=== PATIENT | female | born 1960 | race Two or more races ===

== ENCOUNTER → 2016-11-21 | Outpatient (CLI) | payer BC ==
[~2016-11-21] MED LIST: ATIVAN 1 MG1 MG PO; AUGMENTIN 875-1 EACH PO; CIPRO500 MG PO; COZAAR25 MG PO; ERY-TAB250 MG PO; GLUCOPHAGE1000 MG PO; GLUCOVANCE 5-51 EACH PO; LEVEMIR100 UNIT/1 SUB-Q; METOCLOPRAMIDE H5 MG PO; MICRONASE5 MG PO; MIRALAX17 GM PO; PROTONIX40 MG PO; REGLAN10 MG PO; ZANTAC (NON-FO150 MG PO; ZOFRAN4 MG PO
== END | disposition disaster alternative care site (69) ==
LOC: GDIC 14:09
DX: E11.65 Type 2 diabetes mellitus with hyperglycemia (principal)
CPT/HCPCS: G0108

== ENCOUNTER 2017-03-14 15:53 | Emergency (ER) | payer BC, SELFPAY ==
--- NOTE | ~2017-03-14 | ER ---
PATIENT'S NAME: GUSTAVO FITZGERALD [facility] AGE: 56 Y [address] ROOM: [place] [address] LOCATION: ED ADMIT DATE: 03/14/2017 ER/Outpatient Report DISCHARGE DATE: 03/14/2017 FAMILY PHYSICIAN: PHYSICIAN, NO ATTENDING PHYSICIAN: Mg Jett Time of Arrival: 1553 hours. Time of Evaluation: 1556 hours. CHIEF COMPLAINT: Vomiting. HISTORY OF PRESENT ILLNESS: This is a 56-year-old zeo-Zxhjxen-yeykpcll female, who presents to the ER, who has not been feeling well since last night. The patient's interpretation was done through the [employer]. The patient states that she began throwing up last night, and she has had approximately 4 to 5 diarrheal bowel movements as well. She does not believe she has been running any fevers. She has had no troubles with constipation. She has not noticed any blood in her stool or vomit in her urine. She states that she is feeling a little bit weak, so she went to the clinic in [place] today. She did get blood work drawn there. She did receive a shot for her nausea and was sent home with a prescription for nausea medication. She states that she was unable to fill the prescription because the pharmacy told her that they would not have that ready until tomorrow. She states that she does have diabetes. Her blood sugar this morning when she checked, it was 125. She states no one else at home is ill at this time. The patient denies any chest pain. No abdominal pain. No shortness of breath. ALLERGIES: NO KNOWN ALLERGIES. MEDICATIONS: Please see medication list in nurse's notes. PAST MEDICAL HISTORY: Insulin-dependent diabetic. SOCIAL HISTORY: Denies smoking, drug, or alcohol use. REVIEW OF SYSTEMS: All systems were reviewed and were negative with the exception of those discussed in the HPI. [facility] AGE: 56 Y [address] ROOM: [place] [address] LOCATION: ED ADMIT DATE: 03/14/2017 ER/Outpatient Report DISCHARGE DATE: 03/14/2017 FAMILY PHYSICIAN: PHYSICIAN, NO ATTENDING PHYSICIAN: Mg Jett PHYSICAL EXAMINATION: VITAL SIGNS: Height 5 feet 2 inches stated, weight 71 kg taken, blood pressure is 183/83, pulse 90, respirations 16, temperature 99 degrees tympanically, saturations 95% on room air. Henny Coma Score is 15. GENERAL: Alert, calm female, in mild distress due to her dry heaving. HEENT: Head: Normocephalic. Eyes: Pupils are equal and reactive to light. She does display moist mucous membranes. LUNGS: Clear to auscultation bilaterally. HEART: Regular rate and rhythm. ABDOMEN: Soft, it is nontender. She has hypoactive bowel sounds. SKIN: Warm, dry, and intact. LABORATORY DATA AND X-RAYS: CBC: White count is 11.9, hemoglobin is 12.3, platelets 343, and ANC is 9.9. CMS: Sodium is 138, potassium 3.7, glucose is 216, anion gap is 10.7, serum acetone is negative. Venous ABG: The pH is 7.45. Urinalysis clean catch, leukocytes 100, nitrites negative. UA micro, white blood cells 10-20, epithelial 0-2, bacteria many. We did send this off for culture. Labs from [place] were also reviewed. IMPRESSION: 1. Gastroenteritis. 2. Urinary tract infection. ASSESSMENT AND PLAN: We did start an IV here in the emergency room. We did give her a liter of IV fluids and a total of 8 mg of Zofran. The patient states she is still feeling nauseated, so we did give her Phenergan 50 mg IM as well. We did give her Rocephin 1 g IV for her urinary tract infection while she was resting. I did discuss the patient's care with Dr. Barrera. We will dismiss her to home. She needs to do small amounts of fluids frequently and monitor her symptoms. I will send her home with prescriptions for Zofran and Bactrim to use as directed. She needs to monitor her blood sugars closely, and I would like her to follow up with her primary care physician tomorrow morning. The patient and the patient's family understand and agree with care. SHANNON ADAMS PA-C FOR DO SEA QUIÑONES/modl /[id number] d: t: 03/17/17 1218, OUTPATIENT REPORT
[~2017-03-14 15:53] MED LIST changes: -AUGMENTIN 875-1 EACH PO; -CIPRO500 MG PO; -COZAAR25 MG PO; -MIRALAX17 GM PO
[2017-03-14 16:28] LABS: BICARBONATE 29.9 mmol/L (18.0-23.0); PCO2 43 mmHg (35-45); PO2 68 mmHg (80-90)
[2017-03-14 16:29] LABS: BASOPHIL % 0.2 %; HEMATOCRIT 36.3 % (33.0-46.0); HEMOGLOBIN 12.3 g/dL (10.0-15.0); IMMATURE GRANULOCYTE % 0.3 %; LYMPHOCYTE # 1.6 K/uL (0.8-4.0); LYMPHOCYTE % 13.8 %; MCH 31.1 pg (27.0-34.0); MCHC 33.9 gm/dL (32.0-36.5); MCV 91.9 fl (83.0-98.0); MONOCYTE # 0.3 K/uL (0.0-1.0); MONOCYTE % 2.3 %; MPV 11.4 fl (9.4-12.4); NEUTROPHIL # (ANC) 9.9 K/uL (1.8-7.8); NEUTROPHIL % 83.4 %; NRBC % 0 /100WBC (0-0.00); PLATELET COUNT 343 K/uL (150-450); RBC 3.95 M/uL (3.50-5.50); RDW-CV 12.3 % (11.9-14.6); WBC 11.9 K/uL (4.0-11.0)
[2017-03-14 16:52] LABS: ALBUMIN 3.6 gm/dL (3.5-5.0); ALK PHOS 75 IU/L (33-138); ALT 17 IU/L (12-78); ANION GAP 10.7 (10.0-19.0); AST 15 IU/L (10-40); BLOOD UREA NITROGEN 17 mg/dL (6-24); CALCIUM 8.8 mg/dL (8.5-10.5); CHLORIDE 104 mMol/L (96-110); CO2 27 mMol/L (22-32); CREATININE 0.6 mg/dL (0.5-1.1); ESTIMATED GFR (MDRD EQUATION) > 60; POTASSIUM 3.7 mMol/L (3.7-5.1); SODIUM 138 mMol/L (135-145); TOTAL BILIRUBIN 0.4 mg/dL (0.0-1.5); TOTAL PROTEIN 8.4 g/dL (6.0-8.4)
[2017-03-14 17:18] LABS: BILIRUBIN URINE NEGATIVE (NEGATIVE); BLOOD URINE 10 /UL (NEGATIVE); COLOR URINE YELLOW (YELLOW); GLUCOSE URINE 100 mg/dL (NEGATIVE); KETONE URINE 15 mg/dL (NEGATIVE); LEUKOCYTES URINE 100 /UL (NEGATIVE); NITRITE URINE NEGATIVE (NEGATIVE); PROTEIN URINE 30 mg/dL (NEGATIVE); TURBIDITY URINE 2+ (CLEAR); UROBILINOGEN URINE NORMAL (NORMAL)
[2017-03-14 17:28] LABS: BACTERIA URINE MANY (NEGATIVE); EPITHELIAL URINE 0-2 #/HPF (NEGATIVE); RBC URINE 0-2 #/HPF (NEGATIVE)
== END 2017-03-14 19:20 | disposition disaster alternative care site (69) ==
LOC: GMED 15:53
PROVIDERS: Physician Assistant Medical
DX: K52.9 Noninfective gastroenteritis and colitis, unspecified (principal); N39.0 Urinary tract infection, site not specified; E11.9 Type 2 diabetes mellitus without complications; Z79.4 Long term (current) use of insulin; Z79.899 Other long term (current) drug therapy
CPT/HCPCS: J0696; J2405; J2550; J7030

== ENCOUNTER 2017-03-18 14:57 | Emergency (ER) | payer BC, SELFPAY ==
--- NOTE | ~2017-03-18 | ER ---
PATIENT'S NAME: GUSTAVO FITZGERALD [facility] AGE: 56 Y [address] ROOM: [place] [id number] LOCATION: ED ADMIT DATE: 03/18/2017 ER/Outpatient Report DISCHARGE DATE: FAMILY PHYSICIAN: Physician, Unknown ATTENDING PHYSICIAN: Mg Jett Time of Arrival: 1457 hours. Time of Evaluation: 1509 hours. CHIEF COMPLAINT: Nausea. HISTORY OF PRESENT ILLNESS: The patient is a 56-year-old female, who presents to the emergency department today with a chief complaint of nausea. She reports that she was throwing up yesterday. She was seen in [place], was given some nausea medicine and felt better. She has not had any nausea since. She reports she just feels like her belly is having gas, and she feels nauseous. She has not had any vomiting. The patient does have a history of gastroparesis in the past. Denies any fevers or chills. No abdominal pain. No urinary frequency, urgency, or painful urination. No blood in her stool. No dark tarry stools. The patient does report she has a history of similar episodes in the past. She was recently seen in our facility and was diagnosed with the UTI and sent home with Bactrim. The patient apparently reports that she stopped taking the Bactrim because one of her other doctors told her to. PAST MEDICAL HISTORY: Insulin-dependent diabetes, gastroparesis. PAST SURGICAL HISTORY: Ventral hernia repair. SOCIAL HISTORY: Denies any tobacco, alcohol, or illicit drug use. ALLERGIES: NO KNOWN DRUG ALLERGIES. MEDICATIONS: Please see list. PRIMARY CARE DOCTOR: Tamera Long PA-C in [place]. REVIEW OF SYSTEMS: PATIENT'S NAME: GUSTAVO FITZGERALD [facility] AGE: 56 Y [address] ROOM: [place] [address] LOCATION: ED ADMIT DATE: 03/18/2017 ER/Outpatient Report DISCHARGE DATE: FAMILY PHYSICIAN: Physician, Unknown ATTENDING PHYSICIAN: Mg Jett All systems are reviewed by myself and are negative with the exception of those discussed in the HPI and past medical history. PHYSICAL EXAMINATION: VITAL SIGNS: Weight 70.4 kg, blood pressure 116/69, pulse 90, respiratory rate 18, temperature 98.9, oxygen saturation 96% on room air. GENERAL: The patient is a 56-year-old female, who appears stated age, in no acute distress at this time. HEENT: HEAD: Normocephalic, atraumatic. Pupils are equal, round, and reactive to light and accommodation. Extraocular motions are intact. Nares are patent bilaterally. TMs are clear. Oropharynx is clear. Mucous membranes moist. NECK: Supple. There is no nuchal rigidity. CARDIOVASCULAR: Regular rate and rhythm. No murmurs, rubs, or gallops. LUNGS: Clear to auscultation bilaterally. No wheezes, rales, or rhonchi. ABDOMEN: Soft, nontender, and nondistended. No rebound, rigidity, or guarding. MUSCULOSKELETAL: The patient moves all 4 extremities, 5/5 muscle strength. SKIN: Warm and dry. There are no rashes or lesions noted. LABORATORY DATA AND X-RAYS: CBC: White blood cell count 12.4. Lactate is normal. Fingerstick blood sugar is 166. CMP is unremarkable except for potassium 3.6. LFTs are normal. Procalcitonin is normal. Urinalysis shows 500 leukocyte esterase, negative nitrites, 30 protein, 50 ketones, 50-100 wbc's, few bacteria, otherwise unremarkable. IMPRESSION: 1. Acute urinary tract infection, suspect bladder. 2. Nausea. 3. Initial visit. EMERGENCY DEPARTMENT COURSE: The patient was back to the examination room. Seen and evaluated by myself. IV is established. Laboratory analysis and imaging are obtained as described above. The patient was given a liter of normal saline IV. She was given 10 mg of Reglan IV, as well as 25 mg of Benadryl IV. This has resulted in improvement in the patient's symptoms. The patient's was communicated with via [employer]. I have discussed the results with her. Her questions are answered. Her abdominal exam is repeated. She continues to have a nonsurgical abdominal exam at this time. I do feel she is safe for outpatient evaluation. I have asked she follows up with Gastroenterology for further evaluation, consideration for repeat endoscopy. I have also asked she follows up with her primary care doctor in 2 to 3 days for re-evaluation. The patient is agreeable without further questions. PATIENT'S NAME: [facility]EN [facility] AGE: 56 Y [address] ROOM: [place], [place] [address] LOCATION: [facility] ADMIT DATE: 03/18/2017 ER/Outpatient Report DISCHARGE DATE: FAMILY PHYSICIAN: Physician, Unknown ATTENDING PHYSICIAN: Mg Jett DISPOSITION: The patient discharged home in good condition. DO KATARINA QUIÑONES/mercedl /[id number] d: 03/18/174 t: 03/19/17 1608, OUTPATIENT REPORT
[2017-03-18 15:48] LABS: BILIRUBIN URINE NEGATIVE (NEGATIVE); BLOOD URINE 10 /UL (NEGATIVE); COLOR URINE YELLOW (YELLOW); GLUCOSE URINE NEGATIVE (NEGATIVE); KETONE URINE 50 mg/dL (NEGATIVE); LEUKOCYTES URINE 500 /UL (NEGATIVE); NITRITE URINE NEGATIVE (NEGATIVE); PROTEIN URINE 30 mg/dL (NEGATIVE); TURBIDITY URINE CLEAR (CLEAR); UROBILINOGEN URINE NORMAL (NORMAL)
[2017-03-18 15:59] LABS: RBC URINE 0-2 #/HPF (NEGATIVE); WBC URINE 50-100 #/HPF (NEGATIVE)
[2017-03-18 16:00] LABS: BASOPHIL % 0.2 %; EOSINOPHIL % 0.3 %; HEMATOCRIT 37.5 % (33.0-46.0); HEMOGLOBIN 12.9 g/dL (10.0-15.0); IMMATURE GRANULOCYTE # 0.1 K/uL (0.0-0.3); IMMATURE GRANULOCYTE % 0.5 %; LYMPHOCYTE # 3.2 K/uL (0.8-4.0); LYMPHOCYTE % 26.2 %; MCH 31.1 pg (27.0-34.0); MCHC 34.4 gm/dL (32.0-36.5); MCV 90.4 fl (83.0-98.0); MONOCYTE # 0.7 K/uL (0.0-1.0); MONOCYTE % 5.3 %; MPV 10.9 fl (9.4-12.4); NEUTROPHIL # (ANC) 8.4 K/uL (1.8-7.8); NEUTROPHIL % 67.5 %; NRBC % 0 /100WBC (0-0.00); PLATELET COUNT 368 K/uL (150-450); RBC 4.15 M/uL (3.50-5.50); RDW-CV 12.2 % (11.9-14.6); WBC 12.4 K/uL (4.0-11.0)
[2017-03-18 16:11] LABS: BACTERIA URINE FEW (NEGATIVE)
[2017-03-18 16:18] LABS: ALBUMIN 3.3 gm/dL (3.5-5.0); ALK PHOS 70 IU/L (33-138); ALT 15 IU/L (12-78); ANION GAP 12.6 (10.0-19.0); AST 11 IU/L (10-40); BLOOD UREA NITROGEN 19 mg/dL (6-24); CALCIUM 8.4 mg/dL (8.5-10.5); CHLORIDE 104 mMol/L (96-110); CO2 25 mMol/L (22-32); CREATININE 0.7 mg/dL (0.5-1.1); ESTIMATED GFR (MDRD EQUATION) > 60; POTASSIUM 3.6 mMol/L (3.7-5.1); SODIUM 138 mMol/L (135-145)
[2017-03-18 16:19] LABS: TOTAL BILIRUBIN 0.3 mg/dL (0.0-1.5)
== END 2017-03-18 17:07 | disposition disaster alternative care site (69) ==
LOC: GMED 14:57
PROVIDERS: Emergency Medicine
DX: N39.0 Urinary tract infection, site not specified (principal); K31.84 Gastroparesis; Z79.84 Long term (current) use of oral hypoglycemic drugs; Z79.899 Other long term (current) drug therapy; Z98.890 Other specified postprocedural states; E11.9 Type 2 diabetes mellitus without complications
CPT/HCPCS: J1200; J2765; J7030

== ENCOUNTER 2017-04-18 20:18 | Emergency (ER) | payer BC, OTHER ==
--- NOTE | ~2017-04-18 | ER ---
PATIENT'S NAME: GUSTAVO FITZGERALD [facility] AGE: 57 Y [address] ROOM: [place] [address] LOCATION: ED ADMIT DATE: 04/18/2017 ER/Outpatient Report DISCHARGE DATE: FAMILY PHYSICIAN: Tamera Long PA-C ATTENDING PHYSICIAN: Mg Jett Time of Arrival: 2019 hours. Time of Evaluation: 2020 hours. CHIEF COMPLAINT: Vomiting. 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 She did see her primary provider today in [place]. They sent her to [place] for IV fluids and Zofran. She reports that they gave her 2 L of fluid and Zofran, and she has continued to have vomiting. The vomiting had started last night. She has not had fever or chills. Has not had any frequency of urination or pain. Her last bowel movement was on Sunday. Has not noticed any blood in her vomitus. Has just some generalized fullness of her belly. No specific pain. ALLERGIES: NO KNOWN ALLERGIES. CURRENT MEDICATIONS: On her chart and reviewed by me. PAST MEDICAL HISTORY: Diabetes, elevated cholesterol, hypertension, and gastroparesis. PAST SURGICAL HISTORY: Hernia repair. SOCIAL HISTORY: Denies use of tobacco, drugs, or alcohol. PRIMARY CARE PROVIDER: RUTH Cooper in [place] is her primary provider. REVIEW OF SYSTEMS: Negative other than those mentioned in the HPI. PHYSICAL EXAMINATION: VITAL SIGNS: She weighs 72.1 kg, blood pressure initially was 203/111, pulse PATIENT'S NAME: GUSTAVO FITZGERALD [facility] AGE: 57 Y [address] ROOM: [place] [address] LOCATION: ED ADMIT DATE: 04/18/2017 ER/Outpatient Report DISCHARGE DATE: FAMILY PHYSICIAN: Tamera Long PA-C ATTENDING PHYSICIAN: Mg Jett of 112, respirations 20, temperature of 98.2, O2 saturation was 98% on room air. GENERAL: She is awake, alert, and oriented x4. SKIN: [place], warm, and dry. RESPIRATIONS: Even and nonlabored. Lung sounds are clear throughout. HEART: Regular rate and rhythm. ABDOMEN: Soft, nondistended. Bowel sounds are present. LABORATORY DATA AND X-RAYS: Lab work was done. CBC shows a white count of 16.8, hemoglobin is 13.5 with hematocrit of 39.9. Chem panel: Sodium is 136, potassium is 3.4, chlorides are 101. Her BUN is 9 with a creatinine 0.6, her glucose is 222. Lactate was 2.2. Procalcitonin was normal. Clean-catch UA was obtained. It does have 10- 20 white blood cells and many bacteria. We will culture her urine. EMERGENCY ROOM COURSE: Saline lock was initiated. Fluids of normal saline were started at a wide- open rate. She was given Benadryl 25 mg IV and Compazine 10 mg IV. With the fluids and medications, she was feeling better. She did not have any vomiting here in the ER. She was able to rest. Her vital signs remained stable. Blood pressure came down to 174/84. IMPRESSION: 1. Retractable vomiting. 2. History of gastroparesis. 3. Urinary tract infection. PLAN: Home. Rest. Fluids. Monitor blood sugar. Continue current medications. Prescription was written for Cipro. She is to follow up with her primary provider in the next 1 to 2 days if symptoms persist or worsen. KAMRAN GARCIA APRN FOR DO EMELI QUIÑONES/georgette /[id number] d: 04/19/17 0109 t: 04/26/17 1243, OUTPATIENT REPORT
[2017-04-18 20:50] LABS: BASOPHIL % 0.1 %; HEMATOCRIT 39.9 % (33.0-46.0); HEMOGLOBIN 13.5 g/dL (10.0-15.0); IMMATURE GRANULOCYTE # 0.1 K/uL (0.0-0.3); IMMATURE GRANULOCYTE % 0.5 %; LYMPHOCYTE # 1.7 K/uL (0.8-4.0); LYMPHOCYTE % 10.2 %; MCHC 33.8 gm/dL (32.0-36.5); MCV 91.5 fl (83.0-98.0); MONOCYTE # 0.4 K/uL (0.0-1.0); MONOCYTE % 2.4 %; MPV 11.2 fl (9.4-12.4); NEUTROPHIL # (ANC) 14.6 K/uL (1.8-7.8); NEUTROPHIL % 86.8 %; NRBC % 0 /100WBC (0-0.00); PLATELET COUNT 359 K/uL (150-450); RBC 4.36 M/uL (3.50-5.50); RDW-CV 11.9 % (11.9-14.6)
[2017-04-18 20:51] LABS: WBC 16.8 K/uL (4.0-11.0)
[2017-04-18 21:10] LABS: ALBUMIN 3.8 gm/dL (3.5-5.0); ALK PHOS 77 IU/L (33-138); ALT 15 IU/L (12-78); ANION GAP 14.4 (10.0-19.0); AST 14 IU/L (10-40); BLOOD UREA NITROGEN 9 mg/dL (6-24); CALCIUM 8.4 mg/dL (8.5-10.5); CHLORIDE 101 mMol/L (96-110); CO2 24 mMol/L (22-32); CREATININE 0.6 mg/dL (0.5-1.1); POTASSIUM 3.4 mMol/L (3.7-5.1); SODIUM 136 mMol/L (135-145); TOTAL PROTEIN 8.6 g/dL (6.0-8.4)
[2017-04-18 21:11] LABS: TOTAL BILIRUBIN 0.5 mg/dL (0.0-1.5)
[2017-04-18 21:14] LABS: BILIRUBIN URINE NEGATIVE (NEGATIVE); BLOOD URINE NEGATIVE /UL (NEGATIVE); COLOR URINE STRAW (YELLOW); GLUCOSE URINE 1000 mg/dL (NEGATIVE); KETONE URINE 50 mg/dL (NEGATIVE); LEUKOCYTES URINE NEGATIVE /UL (NEGATIVE); NITRITE URINE NEGATIVE (NEGATIVE); PROTEIN URINE 30 mg/dL (NEGATIVE); UROBILINOGEN URINE NORMAL (NORMAL)
[2017-04-18 21:18] LABS: TURBIDITY URINE 1+ (CLEAR)
[2017-04-18 21:24] LABS: BACTERIA URINE MANY (NEGATIVE)
[2017-04-18 21:25] LABS: RBC URINE 0-2 #/HPF (NEGATIVE); WBC CLUMPS URINE FEW (NEGATIVE)
[2017-04-19] MEDS ORDERED: COZAAR25 MG PO (21:27)
[2017-04-19] MEDS ORDERED: GLUCOPHAGE1000 MG PO (21:28)
[2017-04-19] MEDS ORDERED: CIPRO500 MG PO (21:29)
== END 2017-04-18 21:43 | disposition disaster alternative care site (69) ==
LOC: GMED 20:18
PROVIDERS: Emergency Medicine; Nurse Practitioner Family
DX: N39.0 Urinary tract infection, site not specified (principal); E11.43 Type 2 diabetes mellitus with diabetic autonomic (poly)neuropathy; K31.84 Gastroparesis; I10 Essential (primary) hypertension; Z98.890 Other specified postprocedural states; Z79.4 Long term (current) use of insulin; Z79.899 Other long term (current) drug therapy
CPT/HCPCS: J0780; J1200; J7030

== ENCOUNTER 2017-04-19 18:32 | Inpatient (IN) | payer BC, OTHER ==
[~2017-04-19] VITALS: Ht 154.9 cm; Wt 71.8 kg
--- NOTE | ~2017-04-19 | ER ---
PATIENT'S NAME: GUSTAVO FITZGERALD [facility] AGE: 57 Y [address] ROOM: [place] [address] [place] [facility] [place] DATE: 04/19/2017 ER/Outpatient Report DISCHARGE DATE: FAMILY PHYSICIAN: Tamera Long PA-C ATTENDING PHYSICIAN: CAITLIN QUIJANO Admission date and time documented in the medical record. I saw the patient at 1845 hours. CHIEF COMPLAINT: Persistent nausea and vomiting. Unable to eat or drink. HISTORY OF PRESENT ILLNESS: The patient is a 57-year-old female who presents to the emergency room with persistent nausea and vomiting over the past 3-4 days. She has been seen in [place] for this, and she was seen yesterday here in the emergency department at [facility]. She is on Reglan, Zofran, and was given Cipro for a urinary tract infection. She came back tonight with persistent nausea and vomiting. Unable to eat or drink because she vomits right away. Tired and lethargic. No diarrhea, no abdominal pain, no back pain, no urinary symptomatology, no chest pain or shortness of breath. No lightheadedness, dizziness, syncope, or near syncope. No fall or trauma. No recent colds, coughs, flus, fever, chills, or sweats. No headache, eyes, ears, nose, throat, neck, or spine pain. No extremity changes. No skin eruptions or rash. Does have a history of insulin-dependent diabetes mellitus type 2. No other endocrine problems. No history of CVA, TIA, or seizure disorder. No depression, anxiety, or psychosis. HOME MEDICATIONS: See attached medication list. ALLERGIES: NONE. SOCIAL HISTORY: Nonsmoker and nondrinker. SIGNIFICANT PAST MEDICAL HISTORY: Insulin-dependent diabetes mellitus type 2, elevated cholesterol, hypertension, gastroparesis with delayed gastric emptying, and ventral hernia. OPERATIONS: Ventral herniorrhaphy and . REVIEW OF SYSTEMS: PATIENT'S NAME: GUSTAVO FITZGERALD [facility] AGE: 57 Y [address] ROOM: [place] [address] [place] [facility] [place] DATE: 04/19/2017 ER/Outpatient Report DISCHARGE DATE: FAMILY PHYSICIAN: Tamera Long PA-C ATTENDING PHYSICIAN: CAITLIN QUIJANO All systems reviewed by me are negative with exception of those discussed in the history of the present illness. PHYSICAL EXAMINATION: VITAL SIGNS: Temperature 98.5 tympanic, pulse 102, respirations 16, blood pressure 205/108, and O2 saturation on room air is 94%. HEAD: Normocephalic. EYES, EARS, NOSE, THROAT: Clear. Mucous membranes moist. NECK: Negative. SPINE: Negative. LUNGS: Clear. Good air flow. No rales, rhonchi, or wheezes. HEART: Regular. Pulses are palpable. ABDOMEN: Soft, nontender. Active bowel tones. No organomegaly or abnormal masses palpable. EXTREMITIES: Intact. NEUROVASCULAR: Intact. SKIN: Clear. No skin eruptions or rash. LABORATORY AND DIAGNOSTIC DATA: Three-view abdominal x-ray showed no perforation, obstruction, acute lung infiltrate. She does have increased stool pattern. White count [address]. Differential: 85 segs, 11 lymphs, 3 monos. Hemoglobin was 13.4, hematocrit 39.0, and platelet count 357,000. CMS was normal except for a low potassium of 3.5, elevated glucose 193. Amylase and lipase were normal. CPK was 66, CK- MB was less than 0.5, troponin was less than 0.04. CRP was 0.4. TSH was 0.951. Procalcitonin was less than 0.05. Lactate was 1.3. A CT scan of the abdomen and pelvis with IV contrast shows some lower abdominal midline hernia, stable. No acute changes. No free air, free fluid, or other solid organ abnormalities. CT scan was read by Radiology, see dictated transcribed report. IMPRESSION: 1. Intractable nausea and vomiting with a history of gastroparesis and delayed gastric emptying. 2. Insulin-dependent diabetes mellitus, type 2. 3. Hypertension. 4. Elevated cholesterol. 5. Ventral hernia. PLAN: Discussed the patient with Dr. Quijano, hospitalist. We will admit the patient to MICU for further evaluation and treatment. Discussion ensued with the patient concerning my findings and recommendations, she understands. PATIENT'S NAME: ALEXIS SEGOVIA [facility] AGE: 57 Y [address] ROOM: [place] [address] [place] [facility] [place] DATE: 04/19/2017 ER/Outpatient Report DISCHARGE DATE: FAMILY PHYSICIAN: Tamera Long PA-C ATTENDING PHYSICIAN: CAITLIN QUIJANO MD HALI GARCIA/modl /[id number] d: 04/19/172149 t: 04/20/17 1814, OUTPATIENT REPORT
--- NOTE | ~2017-04-19 | DS ---
PATIENT'S NAME: ALEXIS SEGOVIA [facility] AGE: 57 Y [address] ROOM: [id number] [place], [place] [address] LOCATION: [facility] [place] [place] ADMIT DATE: 04/19/2017 Discharge Summary DISCHARGE DATE: 04/23/2017 FAMILY PHYSICIAN: Tamera Long PA-C ATTENDING PHYSICIAN: Shelton Reno PRINCIPAL DIAGNOSES: 1. Gastroparesis. 2. Urinary tract infection with extended-spectrum beta-lactamase positive. 3. Diabetes mellitus type 2. 4. Essential hypertension. 5. Hypokalemia. HOSPITAL COURSE: Please reference any of the admitting data to the history and physical as dictated by Dr. Shelton Reno. Briefly, a 57-year-old female who has a known history of gastroparesis, who came with nausea, vomiting, abdominal pain, was admitted for further evaluation and management. She was evaluated by a KUB and a CT scan of her abdomen and pelvis, which did not show any acute process. There was a stable appearance of the abdominal wall hernia containing loops of bowel, however, there was no strangulation. Laboratory investigation did not show any liver function change. Amylase and lipase were negative. Cardiac enzymes were negative. She did have a mildly elevated CRP. Procalcitonin was negative. She did have a positive urinalysis. For this reason, she was started on IV fluids and placed on Levaquin intravenously. She was given erythromycin for her gastroparesis and her Reglan was stopped. She was given supportive cares for her symptoms. She did show some improvement in the next 24 hours, so we started her on a low fat diet with small frequency. We decided to discontinue her erythromycin and trial her on Reglan. She was given a tap water enema to try to relieve her constipation. Her Reglan was titrated without much improvement, so on 04/21, she was changed back to erythromycin intravenous. Because of interaction with the Levaquin, she was then changed from Levaquin and Zosyn for coverage of her urine, which culture did show ESBL positive, but sensitive to both fluoroquinolones and the Zosyn. By next day, the erythromycin was changed to oral, she continued to show improvement, she was tolerating her diet, her constipation had resolved, her nausea and vomiting had resolved. She was felt stable enough to transition back to home with further outpatient followup warranted in regard to the treatment of her urinary tract infection and her diabetes as well as gastroparesis. On day of discharge, the patient did have a potassium of 2.9, felt it was from volume loss and poor oral intake. We gave her replacement with orders to follow up with lab values with her primary care provider upon followup from the hospital. PATIENT'S NAME: ALEXIS SEGOVIA [facility] AGE: 57 Y [address] ROOM: [address] [address] LOCATION: [facility] [place] [place] ADMIT DATE: 04/19/2017 Discharge Summary DISCHARGE DATE: 04/23/2017 FAMILY PHYSICIAN: Tamera Long PA-C ATTENDING PHYSICIAN: Shelton Reno She also had a lower blood sugar on her fasting CMP on the day of discharge of 58. We decided to decrease her Levemir to half the dosage that she was previously taking, given the changes in her diet, associated with the nausea and vomiting. She was instructed to take her blood sugars twice a day and follow up with her primary care doctor. The remainder of her chronic conditions were maintained by her home medicines if not otherwise stated. She had DVT prophylaxis maintained with Lovenox during her stay as well as pneumatic compression devices, and she ambulated without complication. PERTINENT LAB VALUES: Positive urinalysis from the emergency room on 04/18 had a micro culture showing E. coli, greater than 100,000 count, with ESBL positive result. As previously stated, sensitive to fluoroquinolone and Zosyn treatment. Initial lactate was 2.2 and 1.3 respectively. Procalcitonin was negative. She did have an elevated white count of 16.8 with a shift in her neutrophils of 86.8%. By day of discharge, her leukocytes had fell down to 15.3 and showed a decrease in her absolute neutrophil count of 6.6. Hemoglobin was 11.3, hematocrit 33.3, and platelet count of 318. Glucose as previously stated on the day of discharge was 58, sodium was 146, potassium of 2.9, chloride of 113, CO2 of 25, and calcium 8.4. Liver functions within normal limits. Hemoglobin A1c was 7.3. Amylase was 36 and lipase was 83. CRP was 0.40. TSH was normal at 0.951. A procalcitonin level was negative. IMAGING: Radiologic imaging revealed a KUB that was negative. A CT of the abdomen and pelvis, which showed her abdominal wall hernia containing loops of bowel, but there is no strangulation and it was appearing stable. A followup KUB showed constipation. CONSULTING PROVIDERS: None. PROCEDURES: None. DISCHARGE MEDICATIONS: We as follow: 1. Erythromycin 250 mg p.o. 3 times daily before meals, given 30 minutes prior to meals for 10 more days. 2. Levemir 10 units subcutaneous twice daily, this is a dose change. 3. Cozaar 12.5 mg p.o. every day. 4. MiraLax 17 g p.o. twice daily. 5. Stop Reglan. [facility] AGE: 57 Y [address] ROOM: [address] [place], [place] [address] LOCATION: [facility] [place] [place] ADMIT DATE: 04/19/2017 Discharge Summary DISCHARGE DATE: 04/23/2017 FAMILY PHYSICIAN: Tamera Long PA-C ATTENDING PHYSICIAN: Shelton Reno 6. Glucophage 1000 mg p.o. twice daily. 7. Stop Cipro. 8. Augmentin 875 mg p.o. every 12 hours. DISCHARGE INSTRUCTIONS: The patient will be discharged to home with the care of her family. Her condition upon discharge was Good. She will need to follow a strict low-fat, small frequent meals 4-6 times a day diet. Activity is as tolerated without any restriction. She needs to follow up with her primary care provider, Tamera Long PA-C, in the next 5-7 days with a chemistry panel at that followup timeframe. We do recommend that she continues to check her blood sugar twice a day, record, and take to her followup as well, given her insulin regimen change. Of important note, Congolese translation was used via manager engagement when available or by the [employer] system. The patient was given extensive dietary education and diabetes education. All questions were answered with statements of satisfaction. The patient did request a prescription note of hospitalization for work, this was written upon discharge. Total time in coordination of care of the patient and discharge planning as per Dr. Mccall's note. Thank you for allowing us to participate in the care of this patient while at [facility]. SHER RAMOS APRN, APRN FOR MD JESSICA BLACKWELL/georgette /[id number] CC: Tamera Long PA-C d: 04/23/17 2344 t: 04/30/17 1059, DISCHARGE SUMMARY
--- NOTE | ~2017-04-19 | HP ---
PATIENT'S NAME: GUSTAVO FITZGERALD [facility] AGE: 57 Y [address] ROOM: [place] [id number] [place] [facility] [place] DATE: 04/19/2017 History & Physical DISCHARGE DATE: FAMILY PHYSICIAN: Tamera Long PA-C ATTENDING PHYSICIAN: CAITLIN QUIJANO DATE OF SERVICE: CHIEF COMPLAINT: Nausea and vomiting. HISTORY OF PRESENT ILLNESS: This is a 57-year-old Vincentian speaking female, who says that she has a long history of diabetic gastroparesis for the last 2 years. She states that occasionally she gets an attack of gastroparesis and will go away when she comes to the hospital with the supportive care. This past Sunday about 4 days ago, her symptoms came back including nausea and vomiting, and could not tolerate anything orally. She denies any abdominal pain, diarrhea, or constipation. Her last bowel movement was 4 days ago, was normal. Her last meal was 4 days ago, was with a very small amount of oral intake due to nausea and vomiting. Other than that, she denies any melena, hematochezia, hematuria, coffee-ground emesis, or hematemesis. She also denies any urinary frequency, urgency, or dysuria. She denies any fever, chills, chest pain, shortness of breath, or any abdominal pain at all. REVIEW OF SYSTEMS: As mentioned in the history of present illness. All other systems were reviewed and were negative except those mentioned in the history of present illness. PAST MEDICAL HISTORY: 1. Diabetes type 2. 2. Gastroparesis. ALLERGIES: NO KNOWN DRUG ALLERGIES. HOME MEDICATIONS: Currently, it is being reconciled. SOCIAL HISTORY: The patient denies any alcohol, cigarette, or illegal drug use. PAST SURGICAL HISTORY: 1. Abdominal hernia repair about 2 years ago. PATIENT'S NAME: GUSTAVO FITZGERALD [facility] AGE: 57 Y [address] ROOM: [place] [id number] LOCATION: [facility] [place] DATE: 04/19/2017 History & Physical DISCHARGE DATE: FAMILY PHYSICIAN: Tamera Long PA-C ATTENDING PHYSICIAN: CAITLIN QUIJANO 2. about 2 years ago. FAMILY HISTORY: Both parents from old age. She could not remember much about her parents' medical problems. PHYSICAL EXAMINATION: VITAL SIGNS: At the time of evaluation, temperature 99.1, heart rate 108, respirations 18, blood pressure 184/99, and saturation 99% on room air. GENERAL APPEARANCE: Alert and oriented x3. Currently, in no acute distress. HEENT: Pupils equally round and reactive to light. Extraocular muscles intact. Anicteric sclerae. Nasal turbinates are normal bilaterally. Dry oral mucosa. NECK: No JVD. CARDIOVASCULAR: Regular rate and rhythm. Normal S1, S2. No murmur. No rubs. No gallops. RESPIRATORY: Clear to auscultation. No rales. No rhonchi. No wheezing. No crackles. ABDOMEN: Obese, soft, nontender, nondistended, bowel sounds present, and no mass. No abdominal rigidity. EXTREMITIES: No edema in upper or lower extremities. NEUROLOGICAL: Grossly nonfocal. SKIN: No ulcer, no rash, no cyanosis. LABORATORY DATA: Lactic acid 1.3. CPK 66. Troponin less than 0.04. White blood cells 16.1, hemoglobin 13.4, hematocrit 39, platelets 357. Glucose 193, BUN 12, creatinine 0.5, sodium 135, potassium 3.5, chloride 102, CO2 of 23, calcium 8.6, total protein 7.8, albumin 3.7, AST 14, ALT 17, alkaline phosphatase 71, total bilirubin 0.5, anion gap 13.5, globulin 4.1, INR 0.99. GFR more than 90, amylase 36, lipase 83, CK-MB less than 0.5, CRP 0.4, TSH 0.951, procalcitonin less than 0.05. IMAGING STUDIES: 1. KUB on admission: The official report was read as no acute finding. No evidence of bowel obstruction. No free air. 2. CT of abdomen and pelvis with contrast performed on admission: The official report is pending, but based on the telephone report given to me by the ER physician, it was read as no finding to suggest a small bowel obstruction compared to the previous CT scan of abdomen and pelvis back in October 2016, unchanged. There is still a chronic midline lower abdominal ventral hernia again identified and containing bowel loops without incarceration. Please follow up with official report once it becomes available. [facility] AGE: 57 Y [address] ROOM: [id number] [place], [place] [address] LOCATION: [facility] [place] DATE: 04/19/2017 History & Physical DISCHARGE DATE: FAMILY PHYSICIAN: Tamera Long PA-C ATTENDING PHYSICIAN: CAITLIN QUIJANO ASSESSMENT AND PLAN: 1. Regarding her nausea and vomiting secondary to diabetic gastroparesis: Reviewing her prior admission for the same problem, the patient responded very well to IV erythromycin. Therefore, the plan will be to start her on IV erythromycin 3 mg/kg given over 45 minutes every 8 hours. I will check an EKG to check the QTc interval given that the patient will be getting IV Zofran p.r.n. and also intramuscular Phenergan for nausea. If she ever have pain, I will give her IV morphine p.r.n. She can have a diabetic diet as tolerated and also IV fluids for hydration with a normal saline at 75 mL/h. I will repeat a KUB in the morning. Further plan will depend on clinical course. 2. Regarding her hypokalemia: This is from a GI loss from nausea and vomiting. I will replace the IV potassium chloride 40 mEq 1 dose run 10 mEq per hour. Repeat labs in the morning to confirm that hypokalemia has resolved. In addition, I will do an add-on check for magnesium and phosphorus to see if any of those electrolytes should be replaced. 3. Regarding her diabetes type 2: I will check A1c and also I will be treating her with the home dose of Levemir subcu 20 units b.i.d. In addition, I will put her on the sliding scale with insulin NovoLog mild dose a.c. and at bedtime and titrate as necessary. I will avoid metformin given that metformin can cause the GI distress also because she received IV contrast on admission for CT of abdomen and pelvis with IV contrast. Further plan will depend on clinical course. 4. For DVT prophylaxis, she will be on subcu Lovenox. 5. She is a full code. Time spent in care on the day of admission 35 minutes where 10 minutes was spent on chart review and the remainder of the time was spent on interview and physical examination, and also on counseling. The counseling includes going over the plan of care with the patient and also addressing all her questions to her satisfaction. In addition, also went over the plan of care in detail with the nurse and also with the patient's family member at the bedside. Further plan will depend on clinical course. MD AMINATA BOYCE/georgette /[id number] D: [id number] T: HISTORY & PHYSICAL
[2017-04-19 19:09] LABS: BASOPHIL % 0.1 %; HEMOGLOBIN 13.4 g/dL (10.0-15.0); IMMATURE GRANULOCYTE # 0.1 K/uL (0.0-0.3); IMMATURE GRANULOCYTE % 0.4 %; LYMPHOCYTE # 1.8 K/uL (0.8-4.0); LYMPHOCYTE % 11.3 %; MCH 31.2 pg (27.0-34.0); MCHC 34.4 gm/dL (32.0-36.5); MCV 90.7 fl (83.0-98.0); MONOCYTE # 0.5 K/uL (0.0-1.0); MPV 11.1 fl (9.4-12.4); NEUTROPHIL # (ANC) 13.7 K/uL (1.8-7.8); NEUTROPHIL % 85.2 %; NRBC % 0 /100WBC (0-0.00); PLATELET COUNT 357 K/uL (150-450); RDW-CV 12.1 % (11.9-14.6)
[2017-04-19 19:10] LABS: WBC 16.1 K/uL (4.0-11.0)
[2017-04-19 19:17] LABS: INR - (THERAPEUTIC) 0.99 (0.92-1.07); PROTIME 10.4 SECONDS (9.8-11.4)
[2017-04-19 19:32] LABS: ALBUMIN 3.7 gm/dL (3.5-5.0); ALK PHOS 71 IU/L (33-138); ALT 17 IU/L (12-78); ANION GAP 13.5 (10.0-19.0); AST 14 IU/L (10-40); BLOOD UREA NITROGEN 12 mg/dL (6-24); CALCIUM 8.6 mg/dL (8.5-10.5); CHLORIDE 102 mMol/L (96-110); CO2 23 mMol/L (22-32); CPK 66 IU/L (21-215); CREATININE 0.5 mg/dL (0.5-1.1); POTASSIUM 3.5 mMol/L (3.7-5.1); SODIUM 135 mMol/L (135-145); TOTAL BILIRUBIN 0.5 mg/dL (0.0-1.5); TOTAL PROTEIN 7.8 g/dL (6.0-8.4)
[2017-04-19] MEDS ORDERED: COZAAR25 MG PO (21:27)
[2017-04-19] MEDS ORDERED: GLUCOPHAGE1000 MG PO (21:28)
[2017-04-19] MEDS ORDERED: CIPRO500 MG PO (21:29)
[2017-04-20 00:45] LABS: MAGNESIUM 1.9 mg/dL (1.8-2.6); PHOSPHORUS 2.2 mg/dL (2.5-4.9)
[2017-04-20 05:15] LABS: ANION GAP 13.7 (10.0-19.0); BLOOD UREA NITROGEN 10 mg/dL (6-24); CALCIUM 7.8 mg/dL (8.5-10.5); CHLORIDE 106 mMol/L (96-110); CO2 23 mMol/L (22-32); CREATININE 0.6 mg/dL (0.5-1.1); POTASSIUM 3.7 mMol/L (3.7-5.1); SODIUM 139 mMol/L (135-145)
[2017-04-21 04:34] LABS: BASOPHIL % 0.2 %; HEMATOCRIT 35.2 % (33.0-46.0); IMMATURE GRANULOCYTE # 0.1 K/uL (0.0-0.3); IMMATURE GRANULOCYTE % 0.4 %; LYMPHOCYTE # 2.8 K/uL (0.8-4.0); LYMPHOCYTE % 15.4 %; MCH 30.7 pg (27.0-34.0); MCHC 34.1 gm/dL (32.0-36.5); MONOCYTE % 5.4 %; MPV 10.8 fl (9.4-12.4); NEUTROPHIL # (ANC) 14.5 K/uL (1.8-7.8); NEUTROPHIL % 78.6 %; NRBC % 0 /100WBC (0-0.00); PLATELET COUNT 333 K/uL (150-450); RBC 3.91 M/uL (3.50-5.50); RDW-CV 12.3 % (11.9-14.6)
[2017-04-21 04:35] LABS: WBC 18.4 K/uL (4.0-11.0)
[2017-04-21 04:51] LABS: ANION GAP 13.1 (10.0-19.0); BLOOD UREA NITROGEN 14 mg/dL (6-24); CALCIUM 8.2 mg/dL (8.5-10.5); CHLORIDE 106 mMol/L (96-110); CO2 24 mMol/L (22-32); CREATININE 0.5 mg/dL (0.5-1.1); POTASSIUM 3.1 mMol/L (3.7-5.1); SODIUM 140 mMol/L (135-145)
[2017-04-21 13:06] LABS: ALBUMIN 3.1 gm/dL (3.5-5.0); ALK PHOS 56 IU/L (33-138); ALT 14 IU/L (12-78); AST 14 IU/L (10-40); TOTAL PROTEIN 6.8 g/dL (6.0-8.4)
[2017-04-21 13:11] LABS: TOTAL BILIRUBIN 0.3 mg/dL (0.0-1.5)
[2017-04-23 04:18] LABS: HEMATOCRIT 33.3 % (33.0-46.0); HEMOGLOBIN 11.3 g/dL (10.0-15.0); MCH 31.1 pg (27.0-34.0); MCHC 33.9 gm/dL (32.0-36.5); MCV 91.7 fl (83.0-98.0); MPV 11.3 fl (9.4-12.4); PLATELET COUNT 318 K/uL (150-450); RBC 3.63 M/uL (3.50-5.50); RDW-CV 12.4 % (11.9-14.6); WBC 15.3 K/uL (4.0-11.0)
[2017-04-23 04:35] LABS: ALBUMIN 2.9 gm/dL (3.5-5.0); ALK PHOS 53 IU/L (33-138); ALT 11 IU/L (12-78); AST 11 IU/L (10-40); BLOOD UREA NITROGEN 8 mg/dL (6-24); CALCIUM 8.4 mg/dL (8.5-10.5); CHLORIDE 113 mMol/L (96-110); CO2 25 mMol/L (22-32); CREATININE 0.5 mg/dL (0.5-1.1); TOTAL PROTEIN 6.4 g/dL (6.0-8.4)
[2017-04-23 04:36] LABS: ANION GAP 10.9 (10.0-19.0); POTASSIUM 2.9 mMol/L (3.7-5.1); SODIUM 146 mMol/L (135-145); TOTAL BILIRUBIN 0.4 mg/dL (0.0-1.5)
[2017-04-23 05:05] LABS: ABSOLUTE NEUTROPHIL CT (ANC) 6.6 K/uL (1.8-7.8); LYMPHOCYTE # 7.2 K/uL (0.8-4.0); LYMPHOCYTE % 47 %; MONOCYTE # 1.4 K/uL (0.0-1.0); SEGMENTED NEUTROPHIL # 6.6 K/uL (1.8-7.8); SEGMENTED NEUTROPHIL % 43 %
[2017-04-23] MEDS ORDERED: AUGMENTIN 875-1 EACH PO (12:51)
[2017-04-23] MEDS ORDERED: MIRALAX17 GM PO (12:52)
[2017-04-23] MEDS ORDERED: ERY-TAB250 MG PO (12:53)
== END 2017-04-23 13:45 | disposition disaster alternative care site (69) | DRG 74 ==
LOC: GMED 18:32 → GMSU 20:50
PROVIDERS: Emergency Medicine; Internal Medicine; Nurse Practitioner Family; ADMIT Internal Medicine
DX: E11.43 Type 2 diabetes mellitus with diabetic autonomic (poly)neuropathy (principal); I10 Essential (primary) hypertension; N39.0 Urinary tract infection, site not specified; K31.84 Gastroparesis; Z79.4 Long term (current) use of insulin; E87.6 Hypokalemia; B96.20 Unspecified Escherichia coli [E. coli] as the cause of diseases classified elsewhere
CPT/HCPCS: J0360; J1364; J1650; J2405; J2543; J2550; J2765; J3480; J7030; J7040; J7050; Q9967